=== PATIENT | male | born 1960 | race Caucasian/White ===

== ENCOUNTER 2017-11-18 13:11 | Inpatient (IN) | payer MEDICARE ==
[~2017-11-18] VITALS: Ht 188 cm; Wt 106.8 kg
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
[2017-11-18 18:27] LABS: BASOPHILS 0.6 % (0-2); EOSINOPHILS 5.5 % (0-7); HEMATOCRIT 47.5 % (42.0-54.0); HEMOGLOBIN 16.6 g/dL (13.5-17.5); IMMATURE GRANULOCYTES 0.3 % (0-5); LYMPHOCYTES 27.6 % (15-50); MCH 30.5 pg (26.0-34.0); MCHC 34.9 g/dL (31.0-37.0); MCV 87.2 fL (80.0-100.0); MEAN PLATELET VOLUME 10.5 fL (7.4-10.4); MONOCYTES 7.7 % (2-11); NEUTROPHILS 58.3 % (40-80); PLATELET COUNT 132 10x3/uL (130-400); RBC 5.45 10x6/uL (4.20-6.10); RDW 13.3 % (11.5-14.5)
[2017-11-18 18:45] LABS: CALC OSMOLALITY 281 mosm/kg (275-300); CALCIUM 8.3 mg/dL (8.5-10.1); CARBON DIOXIDE 27.4 mmol/L (21.0-32.0); CHLORIDE - SERUM 106 mmol/L (98-107); CREATININE - SERUM 0.9 mg/dL (0.6-1.3); GLUCOSE 148 mg/dL (74-106); POTASSIUM - SERUM 3.3 mmol/L (3.5-5.1); SODIUM 140 mmol/L (136-145); UREA NITROGEN 12 mg/dL (7-18); eGFR NON AFRICAN AMERICAN > 90 mL/min (90-120)
[2017-11-18 18:47] LABS: INR 1.11 (0.85-1.17); PROTIME 13.9 SECONDS (11.6-15.0)
[2017-11-18 18:48] LABS: APTT 34.5 SECONDS (22.8-39.4)
[2017-11-18 20:06] VITALS: BP 139/90
[2017-11-18 20:39] VITALS: BP 149/90; Ht 188 cm; Wt 106.8 kg
[2017-11-18 23:21] VITALS: BP 136/84
[2017-11-19 04:59] VITALS: BP 130/80
[2017-11-19 05:46] LABS: INR 1.03 (0.85-1.17); PROTIME 13.1 SECONDS (11.6-15.0)
[2017-11-19 09:20] VITALS: BP 121/86
[2017-11-19 14:38] VITALS: BP 119/84
[2017-11-19 17:07] VITALS: BP 125/86
[2017-11-19 20:42] VITALS: BP 137/81
[2017-11-20 00:28] VITALS: BP 128/84
[2017-11-20 04:10] VITALS: BP 128/76
[2017-11-20 08:30] VITALS: BP 141/81
[2017-11-20 12:10] LABS: HEPATITIS C ANTIBODY <0.1 (0.0-0.9)
[2017-11-20 12:35] VITALS: BP 137/85
[2017-11-20] MEDS ORDERED: ELIQUIS5 MG PO (12:52)
[2017-11-21 16:07] LABS: PROTEIN S - FREE 81 % (57-157); PROTEIN S - FUNCTIONAL 72 % (63-140); PROTEIN S - TOTAL 72 % (60-150)
[2017-11-22 10:12] LABS: ANTITHROMBIN III ANTIGEN 80 % (72-124)
[2017-11-23 13:17] LABS: PROTEIN C - ANTIGEN 87 % (60-150); PROTEIN C - FUNCTIONAL 94 % (73-180)
== END 2017-11-20 15:00 | disposition home or self-care (01) | DRG 301 ==
LOC: D.US 13:11 → D.MS 15:41
PROVIDERS: Family Medicine
DX: I82.412 Acute embolism and thrombosis of left femoral vein (principal); I82.432 Acute embolism and thrombosis of left popliteal vein; I82.492 Acute embolism and thrombosis of other specified deep vein of left lower extremity; G62.9 Polyneuropathy, unspecified; F17.200 Nicotine dependence, unspecified, uncomplicated

== ENCOUNTER → 2018-06-02 09:12 | Outpatient (CLI) | payer MEDICARE ==
[2017-11-18 20:39] VITALS: BMI 30.2
[~2018-06-02 09:12] MED LIST: ELIQUIS5 MG PO
== END | disposition home or self-care (01) ==
LOC: D.US 09:12
DX: Z86.718 Personal history of other venous thrombosis and embolism (principal)